=== PATIENT | male | born 1990 | race Caucasian/White ===

== ENCOUNTER 2024-07-19 19:19 | Emergency (ER) | payer SELFPAY ==
[2024-07-19] MEDS: Nicotine 21 MG/24 Hr Patch TRDERM ONE (19:44)
[2024-07-19 19:53] LABS: BILIRUBIN,URINE NEGATIVE (NEGATIVE); COLOR,URINE YELLOW; GLUCOSE,URINE NEGATIVE (NEGATIVE); KETONES,URINE >=80 mg/dL (NEGATIVE); LEUKOCYTE ESTERASE,URINE NEGATIVE (NEGATIVE); NITRITE,URINE NEGATIVE (NEGATIVE); OCCULT BLOOD,URINE TRACE-INTACT (NEGATIVE); PH,URINE 6.5 (5.0-8.0); PROTEIN,URINE 30 mg/dL (NEGATIVE); UROBILINOGEN,URINE 0.2 EU/dL (<2.0)
[2024-07-19] MEDS: Diazepam 5 MG Tab PO ONE (19:53)
[2024-07-19] MEDS: Multivitamin Tab PO ONE (19:53)
[2024-07-19] MEDS: Folic Acid 1 MG Tab PO ONE (19:53)
[2024-07-19] MEDS: Thiamine 100 MG Tab PO ONE (19:53)
[2024-07-19 19:57] LABS: APPEARANCE,URINE HAZY
[2024-07-19 20:01] LABS: BACTERIA,URINE FEW (NEGATIVE); EPITHELIAL CELLS,URINE RARE (NONE-FEW); MUCUS,URINE LIGHT (NONE-MOD); RBC,URINE 0-1 (0-2/HPF); WBC,URINE 0-1 (0-5/HPF)
[2024-07-19] MEDS: Sodium Chloride 0.9% 2,000 ML IV ONE (20:02)
[2024-07-19 20:10] LABS: AMPHETAMINES SCREEN, URINE NEGATIVE (CUTOFF=500); BARBITURATE SCREEN,URINE NEGATIVE (CUTOFF=200); BENZODIAZEPINES SCREEN,URINE NEGATIVE (CUTOFF=150); BUPRENORPHINE SCREEN,URINE NEGATIVE (CUTOFF=10); METHADONE SCREEN, URINE NEGATIVE (CUTOFF=200); METHAMPHETAMINES SCREEN, URINE NEGATIVE (CUTOFF=500); OXYCODONE SCREEN,URINE NEGATIVE (CUT0FF=100); PCP SCREEN,URINE NEGATIVE (CUTOFF=25); THC SCREEN,URINE 20 NG/ML NEGATIVE (CUTOFF=50)
[2024-07-19] MEDS: Ibuprofen 600 MG Tab PO ONE (20:35)
[2024-07-19] MEDS: Acetaminophen 500 MG Tab PO ONE (20:35)
[2024-07-19] MEDS: Diphtheria,Pertussis(Acell),Tetanus Vaccine 0.5 ML Syringe IM ONE (20:35)
== END 2024-07-19 20:40 | disposition left against medical advice (07) ==
LOC: MW.ED 19:19
DX: S01.111A Laceration without foreign body of right eyelid and periocular area, initial encounter (principal); S60.222A Contusion of left hand, initial encounter; F10.230 Alcohol dependence with withdrawal, uncomplicated; Z23 Encounter for immunization; W18.39XA Other fall on same level, initial encounter; Y93.89 Activity, other specified
CPT/HCPCS: 70450; 70486; 73130; 80305; 81001; 90471; 93005; 99285; A9270; 99284

== ENCOUNTER 2024-07-20 16:35 | Emergency (ER) | payer SELFPAY ==
[2024-07-20] MEDS: Nicotine 21 MG/24 Hr Patch TRDERM SCH (18:20)
[2024-07-20] MEDS: Nicotine 21 MG/24 Hr Patch TRDERM STA (18:21)
[2024-07-20 18:25] LABS: BASOPHILS ABSOLUTE AUTO 0.04 K/uL (0.00-0.20); BASOPHILS PERCENT AUTO 0.8 % (0.0-1.0); EOSINOPHILS ABSOLUTE AUTO 0.02 K/uL (0.00-0.45); EOSINOPHILS PERCENT AUTO 0.4 % (0.0-6.0); HEMATOCRIT 45.9 % (42.0-52.0); HEMOGLOBIN 16.4 g/dL (14.0-18.0); IMMATURE GRAN ABSOLUTE AUTO 0.01 K/uL (0.00-0.05); IMMATURE GRAN PERCENT AUTO 0.2 % (0.0-0.4); LYMPHOCYTES ABSOLUTE AUTO 2.47 K/uL (1.00-4.80); LYMPHOCYTES PERCENT AUTO 49.4 % (24.0-44.0); MEAN CORPUSCULAR HEMOGLOBIN 30.9 pg (28.0-32.0); MEAN CORPUSCULAR HGB CONC 35.7 g/dL (32.0-36.0); MEAN CORPUSCULAR VOLUME 86.4 fL (83.0-99.0); MEAN PLATELET VOLUME 9.9 fL (9.4-12.4); MONOCYTES ABSOLUTE AUTO 0.27 K/uL (0.00-0.80); MONOCYTES PERCENT AUTO 5.4 % (0.0-8.0); NEUTROPHILS ABSOLUTE AUTO 2.19 K/uL (1.80-7.70); NEUTROPHILS PERCENT AUTO 43.8 % (41.0-71.0); PLATELET COUNT,PLT 184 K/uL (150-400); RED BLOOD CELL COUNT 5.31 M/uL (4.52-5.90)
[2024-07-20 18:45] LABS: A/G RATIO 1.3 (0.9-1.6); ALANINE AMINOTRANSFERASE,ALT 103 IU/L (14-63); ALBUMIN 4.4 g/dL (3.4-5.0); ALKALINE PHOSPHATASE 81 U/L (46-116); ASPARTATE AMNIOTRANSFERASE,AST 102 IU/L (15-37); BILIRUBIN TOTAL 0.7 mg/dL (0.2-1.0); BLOOD UREA NITROGEN,BUN 5 mg/dL (7.0-18.0); CALCIUM 9.1 mg/dL (8.5-10.1); CARBON DIOXIDE,CO2 32.6 mmol/L (21.0-32.0); CHLORIDE,CL 99 mmol/L (98-107); CREATININE 0.9 mg/dL (0.8-1.3); GLUCOSE RANDOM 108 mg/dL (74-106); POTASSIUM,K 3.5 mmol/L (3.5-5.1); PROTEIN TOTAL,TP 7.7 g/dL (6.4-8.2); SODIUM,NA 142 mmol/L (136-148)
[2024-07-20 18:47] LABS: ESTIMATED GFR 115 mL/min (>60); ETHANOL BLOOD MEDICAL 455 mg/dL
== END 2024-07-20 21:23 | disposition home or self-care (01) ==
LOC: MW.ED 16:35
DX: F10.129 Alcohol abuse with intoxication, unspecified (principal); Z75.3 Unavailability and inaccessibility of health-care facilities; Y90.8 Blood alcohol level of 240 mg/100 ml or more
CPT/HCPCS: 36415; 80053; 80307; 85025; 99283; A9270